=== PATIENT | female | born 1985 | race Caucasian/White ===

== ENCOUNTER 2022-11-26 15:07 | Emergency (ER) | payer OTHER ==
[2022-11-26 15:30] VITALS: BP 124/86; PULSE 72; RESP 18; TEMP 98.1; BMI 30.9
[2022-11-26] MEDS ORDERED: FLUCONAZOLE 150 MG TABLET PO ONE ×2 (15:45→15:59)
[2022-11-26 15:50] LABS: HCG,QUALITATIVE URINE Negative
== END 2022-11-26 16:25 | disposition home or self-care (01) ==
LOC: FER 15:07
DX: B37.31 Acute candidiasis of vulva and vagina (principal); L29.2 Pruritus vulvae; R20.8 Other disturbances of skin sensation; N89.9 Noninflammatory disorder of vagina, unspecified; R10.2 Pelvic and perineal pain
CPT/HCPCS: 36415; 81003; 84703; 87491; 87591; 99283-25